=== PATIENT | female | born 1965 | race African-American/Black ===

== ENCOUNTER 2018-12-17 07:24 | Emergency (ER) | payer OTHER ==
[2018-12-17 07:31] VITALS: BP 147/85; PULSE 71; TEMP 98.1; BMI 32.2
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
[2018-12-17] MEDS ORDERED: ACETAMINOPHEN 500 MG TABLET (FP) PO ONE (09:29)
[2018-12-17] MEDS ORDERED: ACETAMINOPHEN 500 MG TABLET (FP) ONE (09:31)
[2018-12-17 11:41] LABS: BASO % 0.7 % (0-2.0); EOS % 1.5 % (0-4.5); HEMATOCRIT 39.5 % (32.4-45.2); HEMOGLOBIN 13.5 GM/dL (10.7-15.3); LYMPH % 54.4 % (8-40); MCH 31.5 pg (25.7-33.7); MCHC 34.1 g/dl (32.0-36.0); MEAN CELL VOLUME 92.3 fl (80-96); MEAN PLT VOLUME 9.5 fl (7.5-11.1); MONO % 9.4 % (3.8-10.2); PLATELET COUNT 198 K/MM3 (134-434); RBC 4.28 M/mm3 (3.60-5.2); RDW 14.6 % (11.6-15.6); WHITE BLOOD COUNT 7.6 K/mm3 (4.0-10.0)
[2018-12-17 12:09] LABS: ALBUMIN 3.8 g/dl (3.4-5.0); ALK PHOS 115 U/L (45-117); ANION GAP 7 MMOL/L (8-16); BILIRUBIN,TOTAL 1.3 mg/dL (0.2-1); BLOOD UREA NITROGEN 10 mg/dL (7-18); CALCIUM 9.4 mg/dL (8.5-10.1); CHLORIDE 103 mmol/L (98-107); CO2 29 mmol/L (21-32); CREATININE 0.9 mg/dL (0.55-1.3); GLUCOSE,RANDOM 184 mg/dL (74-106); LIPASE 85 U/L (73-393); POTASSIUM 3.5 mmol/L (3.5-5.1); SGOT/AST 21 U/L (15-37); SGPT/ALT 31 U/L (13-61); SODIUM 139 mmol/L (136-145); TOT PROT 7.6 g/dl (6.4-8.2)
== END 2018-12-17 12:58 | disposition home or self-care (01) ==
LOC: JER 07:24 → JERFT 07:24
DX: R10.9 Unspecified abdominal pain (principal); V43.52XA Car driver injured in collision with other type car in traffic accident, initial encounter; Y93.89 Activity, other specified; Y92.410 Unspecified street and highway as the place of occurrence of the external cause; E11.9 Type 2 diabetes mellitus without complications; E78.00 Pure hypercholesterolemia, unspecified
CPT/HCPCS: 36415; 76700-TC; 80053; 83690; 85025; 99281-25

== ENCOUNTER 2023-12-24 23:09 | Emergency (ER) | payer SELFPAY ==
[2023-12-24 23:24] VITALS: TEMP 98; BMI 30.4
[2023-12-25] MEDS: SODIUM CHLORIDE 0.9% 500 ML INFUS.BAG IV ONE (00:20)
[2023-12-25 00:40] LABS: BASO % 0.5 % (0-2.0); EOS % 1.3 % (0-4.5); HEMATOCRIT 38.4 % (32.4-45.2); HEMOGLOBIN 12.4 GM/dL (10.7-15.3); LYMPH % 57.3 % (8-40); MCH 30.2 pg (25.7-33.7); MCHC 32.4 g/dl (32.0-36.0); MEAN CELL VOLUME 93.2 fl (80-96); MONO % 8.2 % (3.8-10.2); NEUT % 32.7 % (42.8-82.8); PLATELET COUNT 196 10^3/uL (134-434); RBC 4.11 M/mm3 (3.60-5.2); RDW 13.3 % (11.6-15.6); WHITE BLOOD COUNT 8.6 K/mm3 (4.0-10.0)
[2023-12-25 00:47] LABS: POTASSIUM 3.2 mmol/L (3.5-5.1)
[2023-12-25 00:49] LABS: CALCIUM 10.1 mg/dL (8.5-10.1)
[2023-12-25 00:50] LABS: ALBUMIN 3.7 g/dl (3.4-5.0); BLOOD UREA NITROGEN 31.4 mg/dL (7-18)
[2023-12-25 00:53] LABS: CREATININE 1.3 mg/dL (0.55-1.3)
[2023-12-25 00:55] LABS: BILIRUBIN,TOTAL 1.5 mg/dL (0.2-1); TOT PROT 7.1 g/dl (6.4-8.2)
[2023-12-25] MEDS ORDERED: POTASSIUM CHLORIDE TABS 20 MEQ TABLET.ER (FP) PO ONE (01:50)
[2023-12-25 02:06] VITALS: RESP 15
[2023-12-25] MEDS: POTASSIUM CHLORIDE TABS 20 MEQ TABLET.ER (FP) PO ONE (02:07)
[2023-12-25] MEDS: LACTATED RINGERS SOLUTION 1,000 ML/1,000 ML INFUS.BAG IV SCH (02:10)
[2023-12-25 03:34] VITALS: BP 104/64; PULSE 78
== END 2023-12-25 04:23 | disposition home or self-care (01) ==
LOC: JER 23:09
DX: N17.9 Acute kidney failure, unspecified (principal); E11.65 Type 2 diabetes mellitus with hyperglycemia; R42 Dizziness and giddiness
CPT/HCPCS: 0241U-QW; 36415; 80053; 82962; 83735; 85025; 93005; 93010; 99285-25